=== PATIENT | male | born 1955 | race Caucasian/White ===

== ENCOUNTER 2017-02-19 12:56 | Emergency (ER) | payer OTHER ==
[~2017-02-19] VITALS: Ht 185.4 cm; Wt 96.2 kg
== END 2017-02-19 14:46 | disposition home or self-care (01) ==
LOC: ED 12:56
DX: M25.562 Pain in left knee (principal); R60.0 Localized edema; Z96.652 Presence of left artificial knee joint

== ENCOUNTER → 2017-04-11 | Outpatient (CLI) | payer OTHER | END | disposition home or self-care (01) | LOC: RAD 14:56 | DX: M25.462 Effusion, left knee (principal); M71.22 Synovial cyst of popliteal space [Baker], left knee; Z96.662 Presence of left artificial ankle joint ==

== ENCOUNTER → 2018-05-07 | Day surgery (SDC) | payer OTHER ==
[~2018-05-07] VITALS: Ht 185.4 cm; Wt 98.4 kg
--- NOTE | ~2018-05-07 | O ---
[place], [place] OPERATIVE NOTE NAME: [facility]ISHA [facility]HN [id number] UNIT #: [id number] ROOM: DOCTOR: KORI YOUNGER MD BIRTHDATE: [birth year] DOS: 05/07/2018 PREOPERATIVE DIAGNOSIS: Cataract, right eye. POSTOPERATIVE DIAGNOSIS: Cataract, right eye. OPERATION: Extracapsular cataract extraction by phacoemulsification with posterior chamber intraocular lens implantation, right eye. ANESTHESIA: Monitored standby. INTRAOCULAR LENS: Filippo, model #AU00T0, 21.0 diopters, right eye. OPERATIVE FINDINGS AND PROCEDURE: 2% Xylocaine topical anesthetic gel was applied to the eye in the preop area. The patient was taken to the operating room and prepped and draped in the standard fashion for sterile intraocular surgery. A time out procedure was performed verifying correct patient, correct site and corrects lens with Marbella Younger M.D. The operating microscope was swung into position and the lid speculum was inserted. Using a Ellyn paracentesis blade, a paracentesis was made through clear cornea. Viscoelastic was used to fill the anterior chamber. Using a metal keratome a 2.4 mm self-sealing clear corneal cataract incision was made temporally at the limbus. Using a pre-bent 25 gauge cystotome needle, a standard continuous curvilinear capsulorrhexis was performed. The anterior capsule was removed with forceps. The lens nucleus was hydrodissected and phacoemulsified in the posterior chamber. Cortical material was removed with the irrigation aspiration hand piece and the posterior capsule was then polished with a curet under irrigation. The posterior chamber and capsular bag were filled with viscoelastic. A posterior chamber intraocular lens manufactured by: Filippo, model AU00T0, 21.0 diopters in strength were then inserted into the posterior chamber and within the capsular bag using the lens cartridge and injector system. Viscoelastic was removed using the irrigation aspiration handpiece. The anterior chamber was filled with balanced salt solution through the paracentesis. Both the paracentesis site and cataract incisions were hydrated with BSS and verified to be water-tight and self-sealing. Cefuroxime 1 mg/0.1 mL was injected into the anterior chamber through the paracentesis site. The incision checked to be water-tight using a Weck-Marlen sponge. The integrity of the cataract wound and ocular tension were checked. Lid speculum and drapes were removed. The patient was transferred from the operating room to the recovery room in satisfactory condition. [place], [place] OPERATIVE NOTE NAME: KEISHA HAHN [place] UNIT #: [id number] ROOM: DOCTOR: KORI YOUNGER MD BIRTHDATE: [birth year] KORI YOUNGER MD CM:OPRECORD:OPERATIVE NOTE [id number] KORI YOUNGER MD 05/07/18 1549 interface
[2018-05-07 14:00] VITALS: BP 126/90
[2018-05-07 15:15] VITALS: BP 127/89
[2018-05-07 15:30] VITALS: BP 133/98
[2018-05-07 15:45] VITALS: BP 130/70
== END | disposition home or self-care (01) ==
LOC: SDC 05-05 13:15
DX: H25.811 Combined forms of age-related cataract, right eye (principal); E66.09 Other obesity due to excess calories; Z95.0 Presence of cardiac pacemaker; Z98.890 Other specified postprocedural states; Z90.49 Acquired absence of other specified parts of digestive tract; Z96.652 Presence of left artificial knee joint; Z79.899 Other long term (current) drug therapy; Z68.28 Body mass index [BMI] 28.0-28.9, adult

== ENCOUNTER 2019-09-07 13:25 | Emergency (ER) | payer MEDICARE ==
[~2019-09-07] VITALS: Ht 185.4 cm; Wt 100.7 kg
[~2019-09-07 13:25] MED LIST: Motrin,Rufen800 MG PO; NORCO 5-325 TA1 EACH PO
[2019-09-07 14:22] LABS: BASO % 0.5 % (0.0-1.0); EOS # 0.1 10*3/uL (0.0-0.4); EOS % 1.9 % (1.0-4.0); HEMATOCRIT 45.7 % (42.0-52.0); HEMOGLOBIN 15.7 g/dl (14.0-18.0); LYMPH # 1.4 10*3/uL (1.3-4.4); LYMPH % 22.2 % (27.0-41.0); MEAN CELL VOLUME 90.3 fl (80.0-94.0); MEAN CORPUSCULAR HGB CONC 34.4 g/dl (33.0-37.0); MEAN PLATELET VOLUME 8.8 fl (9.6-12.3); MONO # 0.7 10*3/uL (0.1-1.0); MONO % 10.6 % (3.0-9.0); NEUT % 64.6 % (47.0-73.0); PLATELET COUNT AUTOMATED 220 10*3/uL (130-400); RED BLOOD COUNT 5.06 10*6/uL (4.50-5.90); RED CELL DISTRI WIDTH 12.1 % (0-14.5); WHITE BLOOD COUNT 6.3 10*3/uL (4.8-10.8)
[2019-09-07 14:39] LABS: ALBUMIN 3.8 gm/dl (3.1-4.5); ALKALINE PHOSPHATASE 77 U/L (45-117); BUN 16 mg/dl (7-24); CHLORIDE 108 mmol/L (98-107); CREATININE 0.99 mg/dL (0.70-1.30); SGOT/AST 19 IU/L (3-35); SGPT/ALT 35 U/L (12-78); SODIUM 140 mmol/L (136-145)
[2019-09-07 14:40] LABS: TROPONIN I < 0.015 ng/ml (<0.045)
== END 2019-09-07 17:45 | disposition home or self-care (01) ==
LOC: ED 13:25
PROVIDERS: Nurse Practitioner Family
DX: M54.2 Cervicalgia (principal); R51 Headache; H53.149 Visual discomfort, unspecified; Z95.810 Presence of automatic (implantable) cardiac defibrillator; Z79.899 Other long term (current) drug therapy; Z90.49 Acquired absence of other specified parts of digestive tract; Z96.652 Presence of left artificial knee joint

== ENCOUNTER → 2022-10-05 | Outpatient (CLI) | payer MEDICARE ==
[~2022-10-05] MED LIST changes: +ASPIRIN ADULT L81 M2 PO; +ATORVASTATIN CA40 M1 PO; +LISINOPRIL5 MG PO; +METOPROLOL SUCC25 M2 PO
== END | disposition home or self-care (01) ==
LOC: RAD 08:12
PROVIDERS: ATTEND Chiropractor
DX: M16.11 Unilateral primary osteoarthritis, right hip (principal); M47.816 Spondylosis without myelopathy or radiculopathy, lumbar region; M25.751 Osteophyte, right hip; M25.851 Other specified joint disorders, right hip

== ENCOUNTER → 2023-09-02 | Outpatient (CLI) | payer MEDICARE | END | disposition home or self-care (01) | LOC: RAD 10:06 | PROVIDERS: ATTEND Chiropractor | DX: M17.11 Unilateral primary osteoarthritis, right knee (principal); M25.461 Effusion, right knee ==